=== PATIENT | male | born 1975 | race Caucasian/White ===

== ENCOUNTER 2016-11-16 12:48 | Emergency (ER) | payer OTHER ==
[~2016-11-16] VITALS: Ht 170.2 cm; Wt 100.0 kg
[~2016-11-16 12:48] MED LIST: DILA100C PO; PHEN100 PO
[2016-11-16 12:51] VITALS: BP 135/74; PULSE 82; RESP 20; TEMP 98.1; O2SAT 97
--- NOTE | 2016-11-16 13:05 | PD ---
Physical Exam Date Seen by Provider: November 16, 2016 Time Seen by Provider: 13:02 Narrative 40 YOWM FOR RASH X 1-2 DAYS ON HIS FACE. H/O SEIZURE D/O. PASSED OUT AFTER INJECTION AT THE DOCTORS OFFICE. VSS wating for bed asignment Data Data Last Documented VS Vital Signs Date Time Temp Pulse Resp B/P Pulse Ox O2 Delivery O2 Flow Rate FiO2 11/16/16 12:51 98.1 82 20 135/74 97 Room Air [facility] Medical Record Reviewed: No Supervised Visit with CE: Cas Odonnell November 16, 2016 13:05
--- NOTE | 2016-11-16 14:17 | PD ---
HPI Chief Complaint: Syncope/Near-Syncope Time Seen by Provider: 14:17 Travel History International Travel<30 days: No Contact w/Intl Traveler<30days: No Traveled to known affect area: No History of Present Illness HPI 40-year-old male came to the emergency room with history of a syncopal episode after receiving a shot at his doctor's office for his skin rash. Patient has autism and is not the best historian. But he did say that after the shot he passed out. Primary care asked them to go to the emergency room. He says he is feeling fine at this point. He does not appear to be in any distress. Vital signs were stable. He did not hit his head when he fell. [facility] Past Medical History Narrative Medical List of his past medical, surgical, social and family history was reviewed from the nursing note. Blood Disorders: No Cancer: No Psychiatric: No Seizures: Yes Social History Alcohol Use: No Tobacco Use: No Substance Use: No Allergies-Medications (Allergen,Severity, Reaction): Coded Allergies: No Known Allergies (Verified , 05/26/09) Comments No known drug allergies. Reported Meds & Prescriptions Reported Meds & Active Scripts Active Reported Dilantin (Phenytoin Extended) 100 Mg Cap 100 Mg PO TID Narrative Medication List of his medications reviewed from the nursing note. Review of Systems Except as stated in HPI: all other systems reviewed are Neg Physical Exam Narrative GENERAL: Awake, alert, no obvious distress SKIN: Focused skin assessment warm/dry. Dry peeling skin on the face. HEAD: Atraumatic. Normocephalic. EYES: Pupils equal and round. No scleral icterus. No injection or drainage. ENT: No nasal bleeding or discharge. Mucous membranes pink and moist. NECK: Trachea midline. No JVD. CARDIOVASCULAR: Regular rate and rhythm. No murmur appreciated. RESPIRATORY: No accessory muscle use. Clear to auscultation. Breath sounds equal bilaterally. GASTROINTESTINAL: Abdomen soft, non-tender, nondistended. Hepatic and splenic margins not palpable. MUSCULOSKELETAL: No obvious deformities. No clubbing. No cyanosis. No edema. NEUROLOGICAL: Awake and alert. No obvious cranial nerve deficits. Motor grossly within normal limits. Normal speech. PSYCHIATRIC: Appropriate mood and affect; insight and judgment normal. Data Data Last Documented VS Vital Signs Date Time Temp Pulse Resp B/P Pulse Ox O2 Delivery O2 Flow Rate FiO2 5/12/17 15:20 97.8 76 16 122/81 99 11/16/16 12:51 Room Air Orders Electrocardiogram (11/16/16 ) MDM Medical Decision Making Medical Screen Exam Complete: Yes Emergency Medical Condition: Yes Medical Record Reviewed: Yes Interpretation(s) Twelve-lead EKG was reviewed by me. Normal sinus rhythm, normal axis, nonspecific ST-T wave changes. Heart rate of 70 bpm. Differential Diagnosis Vasovagal syncope, orthostatic hypotension Narrative Course 3:13 PM awaiting for an EKG. In my opinion patient had a vasovagal reaction probably to the painful intramuscular injection. I made him ambulate and he did that fine. He said he was not dizzy. If EKG looks okay I will discharge him home. Procedures EKG Prior to Arrival: No Diagnosis Primary Impression: Vasovagal syncope Referrals: Primary Care Physician Additional Instructions: Please return to the ER if the condition worsens or any other concerns. Next time When you get an intramuscular shot do not stand up immediately. Follow-up with the primary care in couple days. Drink lots of fluid and take it easy. Med/Other Pt SpecificInfo: No Change to Meds Disposition: 01 DISCHARGE HOME Condition: Stable Veronica Cardona MD November 16, 2016 14:17
[2016-11-16] MEDS ORDERED: DILA100C PO (14:38)
[2016-11-16 15:20] VITALS: BP 122/81; TEMP 97.8
--- NOTE | 2016-11-17 13:34 | EKG ---
Date Performed: 11/16/2016 Time Performed: 15:14:17 PTAGE: 40 years EKG: Sinus rhythm Since previous tracing, no significant change noted NORMAL ECG PREVIOUS TRACING : 02/14/2010 11.10 DOCTOR: Belinda Leigh Interpretating Date/Time 11/17/2016 13:32:54
== END 2016-11-16 15:20 | disposition home or self-care (01) ==
LOC: NEPD 12:48
DX: R55 Syncope and collapse (principal)
CPT/HCPCS: 93005